=== PATIENT | female | born 1965 | race Hispanic/Latino ===

== ENCOUNTER 2021-05-19 01:52 | Emergency (ER) | payer MEDICARE ==
[2021-05-19] MEDS ORDERED: SODIUM CHLORIDE 0.9% 500 ML 500 ML IV ONE (02:18)
[2021-05-19] MEDS ORDERED: ONDANSETRON 4 MG ODT TAB PO/SL ONE (02:18)
[2021-05-19 02:31] LABS: Basophils # (Auto) 0.1 K/mm3 (0.0-0.1); Basophils % (Auto) 0.9 % (0.0-1.8); Eosinophils # (Auto) 0.3 K/mm3 (0.0-0.4); Eosinophils % (Auto) 3.6 % (0.0-4.3); Hematocrit 27.8 % (30.3-42.9); Hemoglobin 8.7 gm/dl (10.1-14.3); Lymphocytes % (Auto) 24.1 % (13.4-35.0); Mean Corpuscular HGB Conc 31 % (30-34); Mean Corpuscular Volume 88 fl (79-97); Monocytes # (Auto) 0.6 K/mm3 (0.0-0.8); Monocytes % (Auto) 7.8 % (0.0-7.3); Platelet Count 475 K/mm3 (140-440); Red Blood Count 3.17 M/mm3 (3.65-5.03); Red Cell Distribution Width 16.4 % (13.2-15.2)
[2021-05-19 02:48] LABS: Blood Urea Nitrogen 18 mg/dL (7-17); Hemolysis Index 9
[2021-05-19 02:49] LABS: BUN/Creatinine Ratio 36
[2021-05-19 02:52] LABS: Alanine Aminotransferase 11 units/L (7-56); Albumin 3.5 g/dL (3.9-5); Blood Urea Nitrogen 18 mg/dL (7-17); Calcium 9.1 mg/dL (8.4-10.2); Hemolysis Index 6
[2021-05-19 02:54] LABS: BUN/Creatinine Ratio 36
[2021-05-19] MEDS ORDERED: MORPHINE 4 MG/1 ML INJ IV ONE (03:11)
--- NOTE | 2021-05-19 04:25 | Cat Scan Report ---
CT ABDOMEN AND PELVIS WITH CONTRAST HISTORY: Abdominal / Rectal pain with nausea and vomiting COMPARISON: None TECHNIQUE: Routine abdominal and pelvic CT exam performed following intravenous contrast administrat ion.. All CT scans at this location are performed using CT dose reduction for ALARA by means of autom ated exposure control. FINDINGS: CT ABDOMEN: Lung Bases: No significant abnormality. Liver: No significant abnormality. Biliary: Small gallstones in the gallbladder. No evidence of acute cholecystitis. Spleen: No significant abnormality. Unenlarged. Pancreas: No significant abnormality. Adrenals: No significant abnormality. Kidneys: No significant abnormality. Lymphatics: No lymphadenopathy. Vasculature: No significant abnormality. Bowel/Peritoneum: Left upper quadrant ostomy noted. There is a questionable anal fissure along the ri ght side of the anus in the right gluteal fold. No additional acute findings. CT PELVIC: : Henry catheter in the bladder. Lymphatics: No lymphadenopathy. Osseous Structures: No aggressive appearing osseous lesions. Additional Findings: None IMPRESSION: 1. Questionable anal fissure along the right side of the anus in the right gluteal fold. 2. No additional acute findings. 3. Cholelithiasis without evidence of acute cholecystitis. Signer Name: Crow Martinez MD Signed: 05/19/2021 4:21 AM Workstation Name: [id number]
--- NOTE | 2021-05-19 05:30 | Emergency Department Report ---
ED General Adult HPI - General Chief complaint: Abdominal Pain Stated complaint: NAUSEA AND VOMITING Time Seen by Provider: 05/19/21 02:18 Source: patient, EMS Mode of arrival: Stretcher Limitations: Physical Limitation - History of Present Illness Initial comments: N/V abd pain, and rectal pain x 2 days. Pt from [facility]. Zofran given by EMS with no relief. Pt is aaox4, NAD noted. pt had recent surgery 3 weeks ago colostomy , and anal fissure no fever Severity scale (0 -10): 10 - Related Data Allergies Allergy/AdvReac Type Severity Reaction Status Date / Time codeine Allergy Itching Verified 05/19/21 02:02 diazepam [From Valium] Allergy Unknown Verified 05/19/21 02:02 Penicillins Allergy Hives Verified 05/19/21 02:02 sulfamethoxazole Allergy Unknown Verified 05/19/21 02:02 [From Bactrim] trimethoprim [From Bactrim] Allergy Unknown Verified 05/19/21 02:02 ED Review of Systems ROS: Stated complaint: NAUSEA AND VOMITING Other details as noted in HPI Constitutional: denies: chills, fever Eyes: denies: eye pain, eye discharge, vision change ENT: denies: ear pain, throat pain Respiratory: denies: cough, shortness of breath, wheezing Cardiovascular: denies: chest pain, palpitations Endocrine: no symptoms reported Gastrointestinal: denies: abdominal pain, nausea, diarrhea Genitourinary: denies: urgency, dysuria, discharge Musculoskeletal: denies: back pain, joint swelling, arthralgia Skin: denies: rash, lesions Neurological: denies: headache, weakness, paresthesias Psychiatric: denies: anxiety, depression Hematological/Lymphatic: denies: easy bleeding, easy bruising ED Past Medical Hx - Past Medical History Previous Medical History?: No Hx Hypertension: Yes Hx Diabetes: Yes ED Physical Exam - General Limitations: Physical Limitation General appearance: alert - Head Head exam: Present: atraumatic, normocephalic - Eye Eye exam: Present: normal appearance - ENT ENT exam: Present: mucous membranes moist - Neck Neck exam: Present: normal inspection - Respiratory Respiratory exam: Present: normal lung sounds bilaterally. Absent: respiratory distress - Cardiovascular Cardiovascular Exam: Present: regular rate, normal rhythm. Absent: systolic murmur, diastolic murmur, rubs, gallop - GI/Abdominal GI/Abdominal exam: Present: normal bowel sounds, other (colostomy bag ) - Rectal Rectal exam: Present: other (anal faissure recent debridement , no evidenc eof infection ) - Extremities Exam Extremities exam: Present: normal inspection - Back Exam Back exam: Present: normal inspection - Neurological Exam Neurological exam: Present: alert, oriented X3 - Psychiatric Psychiatric exam: Present: normal affect, normal mood - Skin Skin exam: Present: warm, dry, intact, normal color. Absent: rash ED Course Vital Signs 05/19/21 03:30 Respiratory 20 Rate ED Medical Decision Making - Lab Data Result diagrams: 05/19/21 02:17 05/19/21 02:21 - Radiology Data Radiology results: report reviewed, image reviewed - Medical Decision Making work up unremarkable e, pain and nausea controlled , spoke with dr West in [place] her surgeon , pt had anal fissure debridement and [facility] and has a colostmy . pt is vss no distress at this moment , US shwoed no cholecytitis Critical care attestation.: If time is entered above; I have spent that time in minutes in the direct care of this critically ill patient, excluding procedure time. ED Disposition Clinical Impression: Nausea and vomiting, Gall stones, Anal fissure, Colostomy in place Disposition: 01 HOME / SELF CARE / HOMELESS Is pt being admited?: No Does the pt Need Aspirin: No Condition: Stable Instructions: Abdominal Pain (ED), Nausea, Adult, Cholelithiasis, Anal Fistulotomy, Care After Referrals: WENDY CHRISTIAN MD [Primary Care Provider] - 3-5 Days
[2021-05-19] MEDS ORDERED: MORPHINE 2 MG/1 ML INJ IV ONE (06:00)
--- NOTE | 2021-05-19 06:08 | Ultrasound Report ---
LIMITED RUQ ABDOMINAL ULTRASOUND INDICATION: gall stones. COMPARISON: No relevant prior imaging study available. FINDINGS: Pancreas: Visualized portions show no significant abnormality. Abdominal Aorta: No significant abnormality. IVC: No significant abnormality. Liver: The liver measures 13.9 cm in length. Diffusely increased hepatic echogenicity which typically indicates hepatic steatosis.. Normal hepatopedal blood flow in the main portal vein. Gallbladder: No significant abnormality. Bile ducts: No significant abnormality. Common bile duct measures 3.3 mm. Right kidney: No significant abnormality visualized.. Free fluid: None. Additional Findings: None. IMPRESSION: 1. Sonographic findings suggesting hepatic steatosis. Signer Name: Crow Martinez MD Signed: 05/19/2021 6:04 AM Workstation Name: [id number]
[2021-05-19 12:39] VITALS: BP 120/84
== END 2021-05-19 12:37 | disposition home or self-care (01) ==
LOC: ED 01:52
DX: K80.80 Other cholelithiasis without obstruction (principal); K60.2 Anal fissure, unspecified; I10 Essential (primary) hypertension; E11.9 Type 2 diabetes mellitus without complications; Z88.0 Allergy status to penicillin; Z88.2 Allergy status to sulfonamides; Z88.8 Allergy status to other drugs, medicaments and biological substances; Z79.899 Other long term (current) drug therapy
CPT/HCPCS: 36415; 74177; 76705; 80048; 80053; 83690; 85025; 96374; 96376; 99284; J2270; J7040; Q9967; 99285; J3490; Q0162

== ENCOUNTER 2021-06-09 20:30 | Emergency (ER) | payer MEDICARE ==
[2021-06-09] MEDS ORDERED: HYDROmorphone 1 MG/1 ML INJ IV ONE (21:37)
[2021-06-09] MEDS ORDERED: ONDANSETRON 4 MG/2 ML INJ IV ONE (21:37)
[2021-06-09] MEDS ORDERED: SODIUM CHLORIDE 0.9% 1000 ML 1,000 ML IV ONE (21:37)
--- NOTE | 2021-06-09 21:37 | Emergency Department Report ---
ED Abdominal Pain HPI - General Chief Complaint: Urogenital-Female Stated Complaint: VAGINAL PAIN PUI?: No Time Seen by Provider: 06/09/21 21:33 Source: patient, EMS Mode of arrival: Stretcher Limitations: No Limitations - History of Present Illness Initial Comments: Patient is a 55-year-old female that presents emergency room via EMS for abdominal pain patient states it started 2 days ago. Patient states the pain is worsening. Patient states the pain is 10 out of 10. Patient states is in her bilateral lower quadrants. Patient also complains of dysuria. Patient has a indwelling catheter but she still having burning sensation. Patient is also complaining of vaginal pain. Patient denies vaginal discharge. Patient states is being treated for UTI but now with antibiotics with Pyridium. Patient brought in by EMS. EMS states the patient came from a local [facility]. Patient's vital signs stable with EMS. Patient denies recent travel. Patient denies recent international travel. Patient denies exposure to the novel coronavirus. Patient denies sick contacts. Patient denies fever and chills. Patient denies cough. Patient denies diarrhea. Patient denies coming in contact with anybody with symptoms of the novel coronavirus. Patient accompanied by a patient chart from [facility]. Patient has history of postpolio syndrome, diabetes, weakness, protein calorie malnutrition, morbid obesity, COPD, polyarthritis, bedsores, colostomy bag, indwelling catheter, sepsis, hypothyroidism, hyperlipidemia, depression, essential hypertension, fibromyalgia. MD Complaint: abdominal pain -: Sudden Location: LLQ, RLQ Radiation: none Migration to: no migration Severity: severe Severity scale (0 -10): 10 Quality: stabbing Consistency: constant Improves With: rest Worsens With: movement Context: other (Chronic indwelling Henry) Associated Symptoms: nausea, dysuria. denies: vomiting, diarrhea, fever, chills, constipation, hematemesis, hematochezia - Related Data Previous Rx's Medication Instructions Recorded Last Taken Type Ondansetron [Zofran Odt] 4 mg PO Q8HR #14 tab.rapdis 05/19/21 Unknown Rx levoFLOXacin [Levaquin TAB] 500 mg PO QDAY 10 Days #10 tablet 06/10/21 Unknown Rx Allergies Allergy/AdvReac Type Severity Reaction Status Date / Time codeine Allergy Itching Verified 05/19/21 02:02 diazepam [From Valium] Allergy Unknown Verified 05/19/21 02:02 Penicillins Allergy Hives Verified 05/19/21 02:02 sulfamethoxazole Allergy Unknown Verified 05/19/21 02:02 [From Bactrim] trimethoprim [From Bactrim] Allergy Unknown Verified 05/19/21 02:02 ED Review of Systems ROS: Stated complaint: VAGINAL PAIN Other details as noted in HPI Constitutional: denies: chills, fever Eyes: denies: eye pain, eye discharge, vision change ENT: denies: ear pain, throat pain Respiratory: denies: cough, shortness of breath, wheezing Cardiovascular: denies: chest pain, palpitations Endocrine: no symptoms reported Gastrointestinal: as per HPI, abdominal pain, nausea. denies: diarrhea Genitourinary: as per HPI, dysuria. denies: urgency, discharge Musculoskeletal: denies: back pain, joint swelling, arthralgia Skin: denies: rash, lesions Neurological: denies: headache, weakness, paresthesias Psychiatric: denies: anxiety, depression Hematological/Lymphatic: denies: easy bleeding, easy bruising ED Past Medical Hx - Past Medical History Previous Medical History?: Yes Hx Hypertension: Yes Hx Diabetes: Yes - Surgical History Past Surgical History?: Yes - Family History Family history: no significant - Social History Smoking Status: Never Smoker Substance Use Type: None - Medications Home Medications: Home Medications Medication Instructions Recorded Confirmed Last Taken Type Ondansetron [Zofran Odt] 4 mg PO Q8HR #14 tab.rapdis 05/19/21 Unknown Rx levoFLOXacin [Levaquin TAB] 500 mg PO QDAY 10 Days #10 tablet 06/10/21 Unknown Rx ED Physical Exam - General Limitations: No Limitations General appearance: alert, in no apparent distress - Head Head exam: Present: atraumatic, normocephalic - Eye Eye exam: Present: normal appearance - ENT ENT exam: Present: mucous membranes moist - Neck Neck exam: Present: normal inspection - Respiratory Respiratory exam: Present: normal lung sounds bilaterally. Absent: respiratory distress - Cardiovascular Cardiovascular Exam: Present: regular rate, normal rhythm. Absent: systolic murmur, diastolic murmur, rubs, gallop - GI/Abdominal GI/Abdominal exam: Present: soft, tenderness (Lower abdominal tenderness palpation), normal bowel sounds - Extremities Exam Extremities exam: Present: normal inspection - Back Exam Back exam: Present: normal inspection - Neurological Exam Neurological exam: Present: alert, oriented X3 - Psychiatric Psychiatric exam: Present: normal affect, normal mood - Skin Skin exam: Present: warm, dry, intact, normal color. Absent: rash ED Course Vital Signs 06/09/21 06/09/21 06/09/21 20:38 22:10 22:15 Temperature 98.3 F Pulse Rate 97 H Respiratory 18 18 14 Rate Blood Pressure 116/72 O2 Sat by Pulse 96 96 Oximetry 06/09/21 22:16 Temperature Pulse Rate 89 Respiratory 12 Rate Blood Pressure 124/80 O2 Sat by Pulse Oximetry - Reevaluation(s) Reevaluation #1: Patient states she is pain-free. Patient states she is feeling much better. Patient is ready go back to her [facility]. Patient states she does not want to stay in the hospital. I discussed all results and clinical findings with patient. I discussed plan of care with patient. Patient agrees with plan of care. Patient is stable for discharge. Patient will be discharged home. Patient given discharge instructions. Patient voiced understanding of discharge instructions. 06/10/21 00:20 ED Medical Decision Making - Lab Data Result diagrams: 06/09/21 21:48 06/09/21 21:48 - Radiology Data Radiology results: report reviewed CT ABDOMEN AND PELVIS WITH CONTRAST INDICATION / CLINICAL INFORMATION: Abdominal Pain. TECHNIQUE: Axial CT images were obtained through the abdomen and pelvis after 100 cc Omnipaque [address] scans at this location are performed using CT dose reduction for ALARA by means of automated exposure control. COMPARISON: CT abdomen and pelvis 05/19/2021 FINDINGS: Integrity of the abdominal contents is not included on the study. Additionally, there is moderate truncation artifact of the left peritoneal cavity. LOWER CHEST: No significant abnormality of the imaged chest. LIVER: No significant abnormality. Portal vein appears patent. GALLBLADDER: Cholelithiasis. No inflammatory changes. BILE DUCTS: No significant abnormality. SPLEEN: No significant abnormality. PANCREAS: No significant abnormality. ADRENALS: No significant abnormality. KIDNEYS/URETERS: Small 1 mm nonobstructing nephrolith posterior left lower kidney. Other small nephroliths are suggested within the left kidney. Right kidney unremarkable. STOMACH / DUODENUM / SMALL BOWEL: The stomach, duodenum, and small bowel demonstrate no significant abnormality. No specific abnormality of the mesentery demonstrated. COLON: No significant abnormality. APPENDIX: No significant abnormality. PERITONEUM: Double barrel ostomy suggested within left lower quadrant. Small am ount of parastomal fat herniation associated. A few colonic diverticula additionally are present. LYMPH NODES: No significant adenopathy. AORTA / ARTERIES: No significant abnormality. IVC / VEINS: No significant abnormality. URINARY BLADDER: No significant abnormality. Decompressed by Henry catheter. REPRODUCTIVE ORGANS: No significant abnormality. ADDITIONAL ABDOMINAL/PELVIC FINDINGS: Moderate atrophy of the abdominal rectus musculature and abdominal wall muscle tear. No distinct anal fissure. The entirety of the perineum are included. SKELETAL SYSTEM: Severe central stenosis at L3-4. Additionally severe multilevel facet arthropathy of the mid and lower lumbar spine. Moderately severe bilateral femoral acetabular joint degenerative change. IMPRESSION: 1. No acute process within the abdomen or pelvis. - Medical Decision Making Patient is a 55-year-old female who presents emergency room for abdominal pain, vaginal pain. Patient has an indwelling catheter and states she has had a recent UTI. Patient also complained of dysuria. Patient had labs done which were essentially unremarkable except for mild elevated WBC. Patient given pain meds, fluids and IV antibiotics. Patient states her pain improved. Patient had a CT scan of the abdomen to rule out a pyelonephritis. Patient CT scan of the abdomen was negative for acute findings. Patient does not require any further emergency medical service. Patient not require inpatient service. Patient is stable to be discharged back to her [facility]. I discussed all results and clinical findings with patient. I discussed plan of care with patient. Patient agrees with plan of care. Patient is stable for discharge. Patient will be discharged home. Patient given discharge instru ctions. Patient voiced understanding of discharge instructions. - Differential Diagnosis UTI, lower abdominal pain, indwelling catheter, Critical care attestation.: If time is entered above; I have spent that time in minutes in the direct care o f this critically ill patient, excluding procedure time. ED Disposition Clinical Impression: Vaginal pain Abdominal pain Qualifiers: Abdominal location: lower abdomen, unspecified Qualified Code(s): R10.30 - Lower abdominal pain, unspecified UTI (urinary tract infection) Qualifiers: Urinary tract infection type: catheter-associated UTI Indwelling urinary catheter type: indwelling urethral catheter Encounter type: initial encounter Qualified Code(s): T83.511A - Infection and inflammatory reaction due to indwelling urethral catheter, initial encounter; N39.0 - Urinary tract infection, site not specified Disposition: 03 [facility] FACILITY Is pt being admited?: No Does the pt Need Aspirin: No Condition: Stable Instructions: Abdominal Pain, Adult, [id number], Urinary Tract Infection, Adult, [id number] Additional Instructions: Patient to be discharged from ER return to her nursing facility. Patient to follow-up with primary care in 1-2 days. Patient to follow-up with [facility] in 2 to 3 days. Patient to rest. Patient to increase water. Patient to take Tylenol or ibuprofen as needed for pain. Patient to take meds as directed. Patient to return to the ER if condition worsens, changes or new symptoms arise. Prescriptions: levoFLOXacin [Levaquin TAB] 500 mg PO QDAY 10 Days #10 tablet Time of Disposition: 00:15
[2021-06-09 22:25] LABS: Alanine Aminotransferase 17 units/L (7-56); Albumin 3.8 g/dL (3.9-5); Blood Urea Nitrogen 15 mg/dL (7-17); Calcium 9.5 mg/dL (8.4-10.2); Hemolysis Index 2
[2021-06-09 22:29] LABS: Basophils # (Auto) 0.1 K/mm3 (0.0-0.1); Basophils % (Auto) 0.9 % (0.0-1.8); Eosinophils # (Auto) 0.1 K/mm3 (0.0-0.4); Hematocrit 34.8 % (30.3-42.9); Hemoglobin 11.1 gm/dl (10.1-14.3); Lymphocytes # (Auto) 2.5 K/mm3 (1.2-5.4); Mean Corpuscular HGB Conc 32 % (30-34); Mean Corpuscular Volume 85 fl (79-97); Monocytes # (Auto) 0.5 K/mm3 (0.0-0.8); Monocytes % (Auto) 7.7 % (0.0-7.3); Platelet Count 380 K/mm3 (140-440); Red Blood Count 4.11 M/mm3 (3.65-5.03); Red Cell Distribution Width 16.3 % (13.2-15.2)
[2021-06-09 22:30] LABS: BUN/Creatinine Ratio 50; Bilirubin,Direct < 0.2 mg/dL (0-0.2)
[2021-06-09 22:53] LABS: Bacteria,Urine 3+ /HPF (Negative); Bilirubin,Urine NEG (Negative); Blood,Urine NEG (Negative); Calcium Oxalate Crystals,Urine 1+; Color,Urine Amber (Yellow); Mucus,Urine FEW /HPF; Protein,Urine <15 mg/dL mg/dL (Negative)
[2021-06-09] MEDS ORDERED: diphenhydrAMINE 50 MG/ML VIAL IV ONE (22:55)
--- NOTE | 2021-06-10 00:11 | Cat Scan Report ---
CT ABDOMEN AND PELVIS WITH CONTRAST INDICATION / CLINICAL INFORMATION: Abdominal Pain. TECHNIQUE: Axial CT images were obtained through the abdomen and pelvis after 100 cc Omnipaque [address] scans at this location are performed using CT dose reduction for ALARA by means of automated exposure control. COMPARISON: CT abdomen and pelvis 05/19/2021 FINDINGS: Integrity of the abdominal contents is not included on the study. Additionally, there is moderate luis m ncation artifact of the left peritoneal cavity. LOWER CHEST: No significant abnormality of the imaged chest. LIVER: No significant abnormality. Portal vein appears patent. GALLBLADDER: Cholelithiasis. No inflammatory changes. BILE DUCTS: No significant abnormality. SPLEEN: No significant abnormality. PANCREAS: No significant abnormality. ADRENALS: No significant abnormality. KIDNEYS/URETERS: Small 1 mm nonobstructing nephrolith posterior left lower kidney. Other small nephro liths are suggested within the left kidney. Right kidney unremarkable. STOMACH / DUODENUM / SMALL BOWEL: The stomach, duodenum, and small bowel demonstrate no significant a bnormality. No specific abnormality of the mesentery demonstrated. COLON: No significant abnormality. APPENDIX: No significant abnormality. PERITONEUM: Double barrel ostomy suggested within left lower quadrant. Small amount of parastomal fat herniation associated. A few colonic diverticula additionally are present. LYMPH NODES: No significant adenopathy. AORTA / ARTERIES: No significant abnormality. IVC / VEINS: No significant abnormality. URINARY BLADDER: No significant abnormality. Decompressed by Henry catheter. REPRODUCTIVE ORGANS: No significant abnormality. ADDITIONAL ABDOMINAL/PELVIC FINDINGS: Moderate atrophy of the abdominal rectus musculature and abdomi nal wall muscle tear. No distinct anal fissure. The entirety of the perineum are included. SKELETAL SYSTEM: Severe central stenosis at L3-4. Additionally severe multilevel facet arthropathy of the mid and lower lumbar spine. Moderately severe bilateral femoral acetabular joint degenerative ch yue. IMPRESSION: 1. No acute process within the abdomen or pelvis. Signer Name: Vish Mcdonald II, MD Signed: 06/10/2021 12:07 AM Workstation Name: [id number]
[2021-06-10 03:57] VITALS: BP 121/67
== END 2021-06-09 23:00 ==
LOC: ED 20:30
DX: N39.0 Urinary tract infection, site not specified (principal); R10.30 Lower abdominal pain, unspecified; R10.2 Pelvic and perineal pain; I10 Essential (primary) hypertension; E11.9 Type 2 diabetes mellitus without complications
CPT/HCPCS: 36415; 74177; 80048; 80076; 81001; 85025; 87086; 96361; 96365; 96375; 99284; J1170; J1200; J1956; J2405; J7030; Q9967

== ENCOUNTER 2021-06-12 04:12 | Emergency (ER) | payer MEDICARE ==
[2021-06-12 06:02] LABS: Bilirubin,Urine NEG (Negative); Blood,Urine NEG (Negative); Calcium Oxalate Crystals,Urine 1+; Color,Urine Yellow (Yellow); Mucus,Urine FEW /HPF; Urobilinogen,Urine < 2.0 mg/dL (<2.0)
[2021-06-12] MEDS ORDERED: cefTRIAXone/NS 1 GM/50 ML 1 GM/50 ML BAG IV ONE (06:31)
[2021-06-12] MEDS ORDERED: FAMOTIDINE 20 MG/2 ML INJ IV ONE (06:31)
[2021-06-12] MEDS ORDERED: oxyCODONE /ACETAMINOPHEN 5-325MG TAB PO ONE (06:31)
[2021-06-12] MEDS ORDERED: diphenhydrAMINE 50 MG/ML VIAL IV ONE (06:32)
[2021-06-12] MEDS ORDERED: ONDANSETRON 4 MG/2 ML INJ IV ONE (06:33)
--- NOTE | 2021-06-12 06:48 | Emergency Department Report ---
ED Female HPI - General Chief complaint: Urogenital-Female Stated complaint: VAGINAL PAIN X 4 DAYS Time Seen by Provider: 06/12/21 06:05 Source: EMS Mode of arrival: Stretcher Limitations: Physical Limitation - History of Present Illness Initial comments: 55-year-old obese female the past medical history of postpolio syndrome, diabetes, weakness, protein calorie malnutrition, morbid obesity, COPD, polyarthritis, bedsores, colostomy bag, indwelling catheter, sepsis, hypothyroidism, hyperlipidemia, depression, essential hypertension, fibromyalgia. Presents to the hospital with several complaints. She complains of persistent and continue burning at her Henry catheter site. She was seen here On 06/09 and diagnosed with UTI and started on Levaquin. Urine cultures reviewed. Positive gram-negative rods with sensitivity and species identificati on pending. Patient also states she is having persistent rectal pressure feeling like she has to have a bowel movement which makes her nauseated. No vomiting reported. Patient was not transported with penitentiary paperwork - Related Data Previous Rx's Medication Instructions Recorded Last Taken Type Ondansetron [Zofran Odt] 4 mg PO Q8HR #14 tab.rapdis 05/19/21 Unknown Rx levoFLOXacin [Levaquin TAB] 500 mg PO QDAY 10 Days #10 tablet 06/10/21 Unknown Rx Cefuroxime Axetil [Cefuroxime] 500 mg PO BID #18 tab 06/12/21 Unknown Rx Famotidine [Pepcid] 20 mg PO BID #60 tablet 06/12/21 Unknown Rx oxyCODONE /ACETAMINOPHEN [Percocet 1 tab PO Q6HR PRN #14 tablet 06/12/21 Unknown Rx 5/325] Allergies Allergy/AdvReac Type Severity Reaction Status Date / Time codeine Allergy Itching Verified 05/19/21 02:02 diazepam [From Valium] Allergy Unknown Verified 05/19/21 02:02 Penicillins Allergy Hives Verified 05/19/21 02:02 sulfamethoxazole Allergy Unknown Verified 05/19/21 02:02 [From Bactrim] trimethoprim [From Bactrim] Allergy Unknown Verified 05/19/21 02:02 ED Review of Systems ROS: Stated complaint: VAGINAL PAIN X 4 DAYS Other details as noted in HPI ED Past Medical Hx - Past Medical History Previous Medical History?: Yes Hx Hypertension: Yes Hx Diabetes: Yes Additional medical history: Colostomy - Surgical History Past Surgical History?: No - Social History Smoking Status: Never Smoker Substance Use Type: None - Medications Home Medications: Home Medications Medication Instructions Recorded Confirmed Last Taken Type Ondansetron [Zofran Odt] 4 mg PO Q8HR #14 tab.rapdis 05/19/21 Unknown Rx levoFLOXacin [Levaquin TAB] 500 mg PO QDAY 10 Days #10 tablet 06/10/21 Unknown Rx Cefuroxime Axetil [Cefuroxime] 500 mg PO BID #18 tab 06/12/21 Unknown Rx Famotidine [Pepcid] 20 mg PO BID #60 tablet 06/12/21 Unknown Rx oxyCODONE /ACETAMINOPHEN [Percocet 1 tab PO Q6HR PRN #14 tablet 06/12/21 Unknown Rx 5/325] ED Physical Exam - General Limitations: Physical Limitation - Other Other exam information: General: No acute distress Head: Atraumatic Eyes: normal appearance ENT: Moist mucous membranes Neck: Normal appearance, no midline tenderness Chest: Clear to auscultation bilaterally CV: Regular rate and rhythm Abdomen: Soft, normal bowel sounds, nontender, obese, colostomy : No external vaginal abnormality, Henry catheter in place Back: Normal inspection Extremity: Normal inspection, full range of motion Neuro: Alert O x 3, no facial asymmetry, speech clear, no gross motor sensory deficit Psych: Appropriate behavior Skin: Sacral wound, pink, no dressing, no active infection noted ED Course Vital Signs 06/12/21 06/12/21 06/12/21 05:35 06:55 07:01 Temperature 98.2 F Pulse Rate 90 Respiratory 18 Rate Blood Pressure 122/86 142/65 O2 Sat by Pulse 96 97 99 Oximetry 06/12/21 06/12/21 06/12/21 07:15 07:31 07:45 Temperature Pulse Rate Respiratory Rate Blood Pressure 143/59 120/62 135/57 O2 Sat by Pulse 98 96 96 Oximetry 06/12/21 06/12/21 06/12/21 08:01 08:15 08:31 Temperature Pulse Rate Respiratory Rate Blood Pressure 111/79 111/79 111/79 O2 Sat by Pulse 96 96 94 Oximetry 06/12/21 12:15 Temperature Pulse Rate Respiratory Rate Blood Pressure O2 Sat by Pulse 95 Oximetry - Reevaluation(s) Reevaluation #1: 06/12/21 11:00 First urine sample was sent after collection from initial Henry catheter that has been new since April. A new Henry catheter was placed and a second urine sample sent which continues to show signs of infection. Wound dressing was placed by nurse 06/12/21 12:33 patient having multiple bowel movements after enema and reports relief of rectal pressure and vaginal pain. She received IV Rocephin for UTI without signs of allergic reaction. P.o. cefuroxime ordered in the ED to ensure no reaction prior to discharge on the medication 06/12/21 14:12 received [employer] [facility] paperwork at this time just prior to pt d/c - Consultations Consultation #1: 06/12/21 07:[address] Gonzalez surgeon on-call who was in the ED department. We evaluated last CT abdomen pelvis on record from June 07 and patient is noted to have a large amount of stool in her colon. This can be given her the rectal p ressure sensation she is feeling. He recommends a Fleet enema 06/12/21 12:34 Patient did receive case management consultation to address request for alternative penitentiary placement ED Medical Decision Making - Lab Data Result diagrams: 06/12/21 07:17 06/12/21 07:17 Lab Results 06/12/21 06/12/21 06/12/21 Range/Units 05:47 07:17 07:17 WBC 6.9 (4.5-11.0) K/mm3 RBC 3.93 (3.65-5.03) M/mm3 Hgb 11.2 (10.1-14.3) gm/dl Hct 32.3 (30.3-42.9) % MCV 82 (79-97) fl MCH 29 (28-32) pg MCHC 35 H (30-34) % RDW 16.4 H (13.2-15.2) % Plt Count 323 (140-440) K/mm3 Lymph % (Auto) 38.5 H (13.4-35.0) % Allen % (Auto) 7.4 H (0.0-7.3) % Eos % (Auto) 1.7 (0.0-4.3) % Baso % (Auto) 0.9 (0.0-1.8) % Lymph # (Auto) 2.6 (1.2-5.4) K/mm3 Allen # (Auto) 0.5 (0.0-0.8) K/mm3 Eos # (Auto) 0.1 (0.0-0.4) K/mm3 Baso # (Auto) 0.1 (0.0-0.1) K/mm3 Seg Neutrophils % 51.5 (40.0-70.0) % Seg Neutrophils # 3.5 (1.8-7.7) K/mm3 Sodium 139 (137-145) mmol/L Potassium 3.8 (3.6-5.0) mmol/L Chloride 100.6 (98-107) mmol/L Carbon Dioxide 25 (22-30) mmol/L Anion Gap 17 mmol/L BUN 12 (7-17) mg/dL Creatinine 0.3 L (0.6-1.2) mg/dL Estimated GFR > 60 ml/min BUN/Creatinine Ratio 40 % Glucose 159 H (65-100) mg/dL Calcium 9.5 (8.4-10.2) mg/dL Total Bilirubin 0.20 (0.1-1.2) mg/dL AST 13 (5-40) units/L ALT 15 (7-56) units/L Alkaline Phosphatase 112 (35-129) units/L Total Protein 6.7 (6.3-8.2) g/dL Albumin 3.9 (3.9-5) g/dL Albumin/Globulin Ratio 1.4 % Urine Color Yellow (Yellow) Urine Turbidity Clear (Clear) Urine pH 6.0 (5.0-7.0) Ur Specific [place] 1.018 (1.003-1.030) Urine Protein 100 mg/dl (Negative) mg/dL Urine Glucose (UA) Neg (Negative) mg/dL Urine Ketones Neg (Negative) mg/dL Urine Blood Neg (Negative) Urine Nitrite Pos (Negative) Ur Reducing Substances Urine Bilirubin Neg (Negative) Urine Ictotest Urine Urobilinogen < 2.0 (<2.0) mg/dL Ur Leukocyte Esterase Lg (Negative) Urine WBC (Auto) 14.0 H (0.0-6.0) /HPF Urine RBC (Auto) 11.0 (0.0-6.0) /HPF U Epithel Cells (Auto) 3.0 (0-13.0) /HPF Urine Bacteria (Auto) (Negative) /HPF Calcium Oxalate Crystal 1+ Urine Mucus Few /HPF Urine Yeast (Budding) /HPF 06/12/21 Range/Units 10:05 WBC (4.5-11.0) K/mm3 RBC (3.65-5.03) M/mm3 Hgb (10.1-14.3) gm/dl Hct (30.3-42.9) % MCV (79-97) fl MCH (28-32) pg MCHC (30-34) % RDW (13.2-15.2) % Plt Count (140-440) K/mm3 Lymph % (Auto) (13.4-35.0) % Allen % (Auto) (0.0-7.3) % Eos % (Auto) (0.0-4.3) % Baso % (Auto) (0.0-1.8) % Lymph # (Auto) (1.2-5.4) K/mm3 Allen # (Auto) (0.0-0.8) K/mm3 Eos # (Auto) (0.0-0.4) K/mm3 Baso # (Auto) (0.0-0.1) K/mm3 Seg Neutrophils % (40.0-70.0) % Seg Neutrophils # (1.8-7.7) K/mm3 Sodium (137-145) mmol/L Potassium (3.6-5.0) mmol/L Chloride (98-107) mmol/L Carbon Dioxide (22-30) mmol/L Anion Gap mmol/L BUN (7-17) mg/dL Creatinine (0.6-1.2) mg/dL Estimated GFR ml/min BUN/Creatinine Ratio % Glucose (65-100) mg/dL Calcium (8.4-10.2) mg/dL Total Bilirubin (0.1-1.2) mg/dL AST (5-40) units/L ALT (7-56) units/L Alkaline Phosphatase (35-129) units/L Total Protein (6.3-8.2) g/dL Albumin (3.9-5) g/dL Albumin/Globulin Ratio % Urine Color Yellow (Yellow) Urine Turbidity Slightly-cloudy (Clear) Urine pH 6.0 (5.0-7.0) Ur Specific [place] 1.014 (1.003-1.030) Urine Protein 30 mg/dl (Negative) mg/dL Urine Glucose (UA) Neg (Negative) mg/dL Urine Ketones Neg (Negative) mg/dL Urine Blood Neg (Negative) Urine Nitrite Neg (Negative) Ur Reducing Substances Not Reportable Urine Bilirubin Neg (Negative) Urine Ictotest Not Reportable Urine Urobilinogen < 2.0 (<2.0) mg/dL Ur Leukocyte Esterase Lg (Negative) Urine WBC (Auto) 67.0 H (0.0-6.0) /HPF Urine RBC (Auto) 18.0 (0.0-6.0) /HPF U Epithel Cells (Auto) 2.0 (0-13.0) /HPF Urine Bacteria (Auto) 1+ (Negative) /HPF Calcium Oxalate Crystal Urine Mucus Few /HPF Urine Yeast (Budding) 2+ /HPF - Medical Decision Making 55-year-old female presents to the hospital with complaints of persistent and worsening dysuria with Henry placement and rectal and vaginal discomfort. Recent CAT scan reviewed by myself and Dr. Gonzalez general surgeon with notable stool in the rectal vault. Patient received enema with output and improvement in sensation. Henry catheter was changed today. Urine still looks infected based on repeat UA with new Henry in place. Patient was placed on Levaquin several days ago without improvement. Patient received IV Rocephin without signs of allergic reaction. Plan to discharge on cephalosporin if there is not any sign of a reaction here in the ED. Urine culture did reveal gram-negative rods with sensitivity and bacteria identification pending. Patient also requesting pain medication for ongoing pain and GERD medication/Pepcid. I also discussed case with case management who provided some guidelines regarding steps to obtain new penitentiary/rehab facility placement Critical Care Time: No Critical care attestation.: If time is entered above; I have spent that time in minutes in the direct care of this critically ill patient, excluding procedure time. ED Disposition Clinical Impression: Fecal impaction in rectum, UTI (urinary tract infection), Colostomy in place, GERD (gastroesophageal reflux disease), Encounter for Henry catheter replacement Disposition: 01 HOME / SELF CARE / HOMELESS Is pt being admited?: No Does the pt Need Aspirin: No Condition: Stable Instructions: Urinary Tract Infection, Adult, [id number], Indwelling Urinary Catheter Care, Adult, [id number], Gastroesophageal Reflux Disease, Adult, [id number] Additional Instructions: Take the medication as prescribed. Follow-up with your doctor or doctor/clinic provided. Return if symptoms worsen as indicated by your discharge instructions. Prescriptions: Cefuroxime Axetil [Cefuroxime] 500 mg PO BID #18 tab Famotidine [Pepcid] 20 mg PO BID #60 tablet oxyCODONE /ACETAMINOPHEN [Percocet 5/325] 1 tab PO Q6HR PRN #14 tablet PRN Reason: Pain Referrals: PRIMARY CARE,MD [Primary Care Provider] - 3-5 Days your, surgeon [Other] - 3-5 Days
[2021-06-12] MEDS ORDERED: FLEET ENEMA PR ONE (07:13)
[2021-06-12 07:30] LABS: Basophils # (Auto) 0.1 K/mm3 (0.0-0.1); Basophils % (Auto) 0.9 % (0.0-1.8); Eosinophils # (Auto) 0.1 K/mm3 (0.0-0.4); Eosinophils % (Auto) 1.7 % (0.0-4.3); Hematocrit 32.3 % (30.3-42.9); Hemoglobin 11.2 gm/dl (10.1-14.3); Lymphocytes # (Auto) 2.6 K/mm3 (1.2-5.4); Lymphocytes % (Auto) 38.5 % (13.4-35.0); Mean Corpuscular HGB Conc 35 % (30-34); Mean Corpuscular Volume 82 fl (79-97); Monocytes # (Auto) 0.5 K/mm3 (0.0-0.8); Monocytes % (Auto) 7.4 % (0.0-7.3); Platelet Count 323 K/mm3 (140-440); Red Blood Count 3.93 M/mm3 (3.65-5.03); Red Cell Distribution Width 16.4 % (13.2-15.2)
[2021-06-12 07:54] LABS: Alanine Aminotransferase 15 units/L (7-56); Albumin 3.9 g/dL (3.9-5); Blood Urea Nitrogen 12 mg/dL (7-17); Calcium 9.5 mg/dL (8.4-10.2); Hemolysis Index 7
[2021-06-12 08:00] LABS: BUN/Creatinine Ratio 40
[2021-06-12 10:23] LABS: Bacteria,Urine 1+ /HPF (Negative); Mucus,Urine FEW /HPF
[2021-06-12 10:31] LABS: Bilirubin,Urine NEG (Negative); Blood,Urine NEG (Negative); Color,Urine Yellow (Yellow); Urobilinogen,Urine < 2.0 mg/dL (<2.0)
[2021-06-12 15:55] VITALS: BP 139/80
== END 2021-06-12 16:07 | disposition home or self-care (01) ==
LOC: ED 04:12
DX: T83.84XA Pain due to genitourinary prosthetic devices, implants and grafts, initial encounter (principal); K56.41 Fecal impaction; N39.0 Urinary tract infection, site not specified; K21.9 Gastro-esophageal reflux disease without esophagitis; I10 Essential (primary) hypertension; E11.9 Type 2 diabetes mellitus without complications; Z98.890 Other specified postprocedural states; Z79.899 Other long term (current) drug therapy; Z88.5 Allergy status to narcotic agent; Z88.2 Allergy status to sulfonamides; Z88.8 Allergy status to other drugs, medicaments and biological substances; Z88.0 Allergy status to penicillin; Y84.6 Urinary catheterization as the cause of abnormal reaction of the patient, or of later complication, without mention of misadventure at the time of the procedure; Y92.89 Other specified places as the place of occurrence of the external cause
CPT/HCPCS: 36415; 51702; 80053; 81001; 85025; 87086; 96365; 96375; 99284; J0696; J1200; J2405; J3490

== ENCOUNTER 2021-07-01 17:16 | Emergency (ER) | payer MEDICARE ==
--- NOTE | 2021-07-01 19:23 | Emergency Department Report ---
ED Female HPI - General Chief complaint: Urogenital-Female Stated complaint: VAGINAL PAIN Time Seen by Provider: 07/01/21 18:46 Source: patient, family Mode of arrival: Ambulatory Limitations: No Limitations - History of Present Illness Initial comments: 55 yo Morbidly Obese F with h/o Polio s/o chronic Greene catheter and colostomy with chronic decubitus ulcer who presented today with vagina discomfort with likely Greene catheter dysfunction. Patient denies any fever or chills. Patient is wheelchair-bound. She said Greene catheter has not been changed the last 30 days. Patient denies any abdominal pain or discomfort. She however reports some pressure urinating. She also mentioned leaking of the urine from the Greene catheter. No other modifying or associated factors reported. - Related Data Previous Rx's Medication Instructions Recorded Last Taken Type Ondansetron [Zofran Odt] 4 mg PO Q8HR #14 tab.rapdis 05/19/21 Unknown Rx levoFLOXacin [Levaquin TAB] 500 mg PO QDAY 10 Days #10 tablet 06/10/21 Unknown Rx Cefuroxime Axetil [Cefuroxime] 500 mg PO BID #18 tab 06/12/21 Unknown Rx Famotidine [Pepcid] 20 mg PO BID #60 tablet 06/12/21 Unknown Rx oxyCODONE /ACETAMINOPHEN [Percocet 1 tab PO Q6HR PRN #14 tablet 06/12/21 Unknown Rx 5/325] Ciprofloxacin HCl 500 mg PO BID 5 Days #10 cap NS 07/01/21 Unknown Rx Allergies Allergy/AdvReac Type Severity Reaction Status Date / Time codeine Allergy Itching Verified 05/19/21 02:02 diazepam [From Valium] Allergy Unknown Verified 05/19/21 02:02 Penicillins Allergy Hives Verified 05/19/21 02:02 sulfamethoxazole Allergy Unknown Verified 05/19/21 02:02 [From Bactrim] trimethoprim [From Bactrim] Allergy Unknown Verified 05/19/21 02:02 ED Review of Systems ROS: Stated complaint: VAGINAL PAIN Other details as noted in HPI Comment: All other systems reviewed and negative Genitourinary: dysuria, other (Dysfunction catheter) ED Past Medical Hx - Past Medical History Previous Medical History?: Yes Hx Hypertension: Yes Hx Diabetes: Yes Additional medical history: Colostomy - Surgical History Past Surgical History?: No - Social History Smoking Status: Never Smoker Substance Use Type: None - Medications Home Medications: Home Medications Medication Instructions Recorded Confirmed Last Taken Type Ondansetron [Zofran Odt] 4 mg PO Q8HR #14 tab.rapdis 05/19/21 Unknown Rx levoFLOXacin [Levaquin TAB] 500 mg PO QDAY 10 Days #10 tablet 06/10/21 Unknown Rx Cefuroxime Axetil [Cefuroxime] 500 mg PO BID #18 tab 06/12/21 Unknown Rx Famotidine [Pepcid] 20 mg PO BID #60 tablet 06/12/21 Unknown Rx oxyCODONE /ACETAMINOPHEN [Percocet 1 tab PO Q6HR PRN #14 tablet 06/12/21 Unknown Rx 5/325] Ciprofloxacin HCl 500 mg PO BID 5 Days #10 cap NS 07/01/21 Unknown Rx ED Physical Exam - General Limitations: No Limitations General appearance: alert, in no apparent distress - Head Head exam: Present: normal inspection - ENT ENT exam: Present: normal exam, normal orophraynx, mucous membranes moist - Neck Neck exam: Present: normal inspection, full ROM. Absent: tenderness - Respiratory Respiratory exam: Present: normal lung sounds bilaterally. Absent: respiratory distress, accessory muscle use - Cardiovascular Cardiovascular Exam: Present: regular rate, normal rhythm, normal heart sounds - GI/Abdominal GI/Abdominal exam: Present: soft, normal bowel sounds, other (Colostomy bag). Absent: distended, tenderness - External exam: Present: other (Greene catheter in place with noted leakage of urine) - Extremities Exam Extremities exam: Present: other (Noted with right thigh bigger than the left from polio) - Back Exam Back exam: Present: other (Decubital ulcer dressed). Absent: tenderness - Neurological Exam Neurological exam: Present: alert, oriented X3 - Psychiatric Psychiatric exam: Present: normal affect, normal mood (Band-Aid decubital ulcer ) ED Course Vital Signs 07/01/21 07/01/21 17:23 19:19 Temperature 98.6 F Pulse Rate 96 H Respiratory 16 Rate Blood Pressure 121/66 [Left] O2 Sat by Pulse 96 99 Oximetry - Reevaluation(s) Reevaluation #1: 07/01/21 19:27 Morbidly Obese with history of Polio -- with chronic greene catheter and Colostomy bag --here with vaginal discomfort with urine leakage-- differential includes but not limited to Greene Catheter dysfunction, UTI or vaginitis -- will go ahead and check UA and change the greene catheter and treat accordingly. 07/01/21 19:29 Pt previous visit reviewed on 06/12 where she present with same symptoms and was treated for UTI and have her greene catheter changed. She was also given enema at that time. Reevaluation #2: 07/01/21 22:08 Urinalysis done with a clean urine from the new Greene catheter noted with large urine leukocytes with negative nitrates with this patient's symptoms--we will go ahead and give 500 mg of Keflex p.o. and DC home to 7 more days of antibiotics for the likely urinary tract infection. Critical care attestation.: If time is entered above; I have spent that time in minutes in the direct care of this critically ill patient, excluding procedure time. ED Disposition Clinical Impression: Vaginal pain Dislodged Greene catheter Qualifiers: Encounter type: initial encounter Qualified Code(s): T83.021A - Displacement of indwelling urethral catheter, initial encounter Urinary tract infection Qualifiers: Urinary tract infection type: catheter-associated UTI Indwelling urinary catheter type: indwelling urethral catheter Encounter type: initial encounter Qualified Code(s): T83.511A - Infection and inflammatory reaction due to indwelling urethral catheter, initial encounter; N39.0 - Urinary tract infection, site not specified Disposition: 01 HOME / SELF CARE / HOMELESS Is pt being admited?: No Does the pt Need Aspirin: No Condition: Stable Instructions: Urinary Tract Infection, Adult, [id number], Antibiotic Me dicine, Adult, [id number] Additional Instructions: It is very important that you take and complete your new antibiotics Keflex as prescribed for the next 7 days to help your symptoms Increase your daily fluid to help your urine output Call and follow-up with your primary doctor in the next 3 to 5 days for progress Please do not hesitate to call or return to emergency room if your symptoms worsen Prescriptions: Ciprofloxacin HCl 500 mg PO BID 5 Days #10 cap NS Referrals: BARNEY MULLEN MD [Referring] - 3-5 Days Time of Disposition: 22:13
[2021-07-01 20:04] LABS: Bacteria,Urine 2+ /HPF (Negative); Bilirubin,Urine NEG (Negative); Blood,Urine MOD (Negative); Calcium Oxalate Crystals,Urine 1+; Color,Urine Yellow (Yellow); Mucus,Urine 3+ /HPF; Urobilinogen,Urine < 2.0 mg/dL (<2.0)
[2021-07-01 20:09] LABS: RBC,Urine > 182.0 /HPF (0.0-6.0); WBC,Urine > 182.0 /HPF (0.0-6.0)
[2021-07-01 21:26] LABS: Bacteria,Urine 1+ /HPF (Negative); Bilirubin,Urine NEG (Negative); Blood,Urine MOD (Negative); Color,Urine Yellow (Yellow); Mucus,Urine 2+ /HPF; Urobilinogen,Urine < 2.0 mg/dL (<2.0)
[2021-07-02 03:06] VITALS: BP 132/66
== END 2021-07-02 01:47 | disposition home or self-care (01) ==
LOC: ED 17:16
DX: T83.028A Displacement of other urinary catheter, initial encounter (principal); R10.2 Pelvic and perineal pain; N39.0 Urinary tract infection, site not specified; I10 Essential (primary) hypertension; E11.9 Type 2 diabetes mellitus without complications; Z88.2 Allergy status to sulfonamides; Z88.8 Allergy status to other drugs, medicaments and biological substances; Y84.9 Medical procedure, unspecified as the cause of abnormal reaction of the patient, or of later complication, without mention of misadventure at the time of the procedure; Y92.89 Other specified places as the place of occurrence of the external cause
CPT/HCPCS: 51702; 81001; 87086; 99283; 99284

== ENCOUNTER 2021-08-05 19:35 | Emergency (ER) | payer MEDICARE ==
[2021-08-05] MEDS ORDERED: SODIUM CHLORIDE 0.9% 1000 ML 1,000 ML IV ONE (19:58)
--- NOTE | 2021-08-05 20:01 | Emergency Department Report ---
ED Female HPI - General Chief complaint: Urogenital-Female Stated complaint: VAGINA PAIN Time Seen by Provider: 08/05/21 19:52 Source: patient, old records reviewed Mode of arrival: Stretcher Limitations: No Limitations, Physical Limitation - History of Present Illness Initial comments: 55-year-old obese female the past medical history of postpolio syndrome, diabetes, weakness, protein calorie malnutrition, morbid obesity, COPD, polyarthritis, bedsores, colostomy bag, indwelling catheter, sepsis, hypothyroidism, hyperlipidemia, depression, essential hypertension, and fibromyalgia presents from the [facility] with complaint of vaginal pain and Henry catheter leaking urine. Patient expresses that she is upset about the treatment she has received at the [facility]. Her catheter has been leaking urine and she has versus concerns about wound irritation. Patient also complains of persistent and ongoing vaginal pain. Patient also complains of moderate suprapubic tenderness worse with palpation. No reports of vomiting or fever patient has been here in the past for similar complaints requiring Henry catheter exchange and antibiotics for UTI. - Related Data Previous Rx's Medication Instructions Recorded Last Taken Type Ondansetron [Zofran Odt] 4 mg PO Q8HR #14 tab.rapdis 05/19/21 Unknown Rx levoFLOXacin [Levaquin TAB] 500 mg PO QDAY 10 Days #10 tablet 06/10/21 Unknown Rx Famotidine [Pepcid] 20 mg PO BID #60 tablet 06/12/21 Unknown Rx oxyCODONE /ACETAMINOPHEN [Percocet 1 tab PO Q6HR PRN #14 tablet 06/12/21 Unknown Rx 5/325] Ciprofloxacin HCl 500 mg PO BID 5 Days #10 cap NS 07/01/21 Unknown Rx Cefuroxime Axetil [Cefuroxime] 500 mg PO BID #18 tab 08/05/21 Unknown Rx Allergies Allergy/AdvReac Type Severity Reaction Status Date / Time codeine Allergy Itching Verified 05/19/21 02:02 diazepam [From Valium] Allergy Unknown Verified 05/19/21 02:02 Penicillins Allergy Hives Verified 05/19/21 02:02 sulfamethoxazole Allergy Unknown Verified 05/19/21 02:02 [From Bactrim] trimethoprim [From Bactrim] Allergy Unknown Verified 05/19/21 02:02 ED Review of Systems ROS: Stated complaint: VAGINA PAIN Other details as noted in HPI Comment: All other systems reviewed and negative ED Past Medical Hx - Past Medical History Previous Medical History?: Yes Hx Hypertension: Yes Hx Diabetes: Yes Additional medical history: Colostomy. Henry Cath - Surgical History Past Surgical History?: No - Social History Smoking Status: Never Smoker Substance Use Type: None - Medications Home Medications: Home Medications Medication Instructions Recorded Confirmed Last Taken Type Ondansetron [Zofran Odt] 4 mg PO Q8HR #14 tab.rapdis 05/19/21 Unknown Rx levoFLOXacin [Levaquin TAB] 500 mg PO QDAY 10 Days #10 tablet 06/10/21 Unknown Rx Famotidine [Pepcid] 20 mg PO BID #60 tablet 06/12/21 Unknown Rx oxyCODONE /ACETAMINOPHEN [Percocet 1 tab PO Q6HR PRN #14 tablet 06/12/21 Unknown Rx 5/325] Ciprofloxacin HCl 500 mg PO BID 5 Days #10 cap NS 07/01/21 Unknown Rx Cefuroxime Axetil [Cefuroxime] 500 mg PO BID #18 tab 08/05/21 Unknown Rx ED Physical Exam - General Limitations: No Limitations, Physical Limitation - Other Other exam information: General: No acute distress Head: Atraumatic Eyes: normal appearance ENT: Moist mucous membranes Neck: Normal appearance, no midline tenderness Chest: Clear to auscultation bilaterally CV: Regular rate and rhythm Abdomen: Soft, normal bowel sounds, suprapubic tenderness no rebound or guarding. Colostomy bag : External vaginal without acute abnormality. Henry catheter was actually outside of the urethra without any urine in the bag. Patient urinated on the bed after arrival Extremity: Normal inspection, full range of motion Neuro: Alert O x 3, no facial asymmetry, speech clear, no gross motor sensory deficit Psych: Appropriate behavior ED Course Vital Signs 08/05/21 08/05/21 08/05/21 19:37 19:55 20:01 Temperature 98 F Pulse Rate 112 H 117 H Respiratory 18 12 Rate Blood Pressure 136/83 144/76 O2 Sat by Pulse 99 96 96 Oximetry 08/05/21 08/05/21 08/05/21 20:15 20:23 20:31 Temperature Pulse Rate 103 H 99 H Respiratory 14 22 18 Rate Blood Pressure 137/80 115/56 O2 Sat by Pulse 96 91 Oximetry ED Medical Decision Making - Lab Data Result diagrams: 08/05/21 20:19 08/05/21 20:19 Lab Results 08/05/21 08/05/21 08/05/21 Range/Units 20:13 20:19 20:19 WBC 10.8 (4.5-11.0) K/mm3 RBC 4.57 (3.65-5.03) M/mm3 Hgb 11.9 (10.1-14.3) gm/dl Hct 35.8 (30.3-42.9) % MCV 78 L (79-97) fl MCH 26 L (28-32) pg MCHC 33 (30-34) % RDW 15.9 H (13.2-15.2) % Plt Count 360 (140-440) K/mm3 Lymph % (Auto) 18.3 (13.4-35.0) % Glenn % (Auto) 5.3 (0.0-7.3) % Eos % (Auto) 1.1 (0.0-4.3) % Baso % (Auto) 0.6 (0.0-1.8) % Lymph # (Auto) 2.0 (1.2-5.4) K/mm3 Glenn # (Auto) 0.6 (0.0-0.8) K/mm3 Eos # (Auto) 0.1 (0.0-0.4) K/mm3 Baso # (Auto) 0.1 (0.0-0.1) K/mm3 Seg Neutrophils % 74.7 H (40.0-70.0) % Seg Neutrophils # 8.1 H (1.8-7.7) K/mm3 Sodium 135 L (137-145) mmol/L Potassium 4.4 (3.6-5.0) mmol/L Chloride 98.7 (98-107) mmol/L Carbon Dioxide 26 (22-30) mmol/L Anion Gap 15 mmol/L BUN 13 (7-17) mg/dL Creatinine 0.4 L (0.6-1.2) mg/dL Estimated GFR > 60 ml/min BUN/Creatinine Ratio 33 % Glucose 237 H (65-100) mg/dL Calcium 9.2 (8.4-10.2) mg/dL Total Bilirubin < 0.20 (0.1-1.2) mg/dL AST 14 (5-40) units/L ALT 13 (7-56) units/L Alkaline Phosphatase 114 (35-129) units/L Total Protein 7.0 (6.3-8.2) g/dL Albumin 3.5 L (3.9-5) g/dL Albumin/Globulin Ratio 1.0 % Urine Color Straw (Yellow) Urine Turbidity Clear (Clear) Urine pH 8.0 H (5.0-7.0) Ur Specific [place] 1.008 (1.003-1.030) Urine Protein <15 mg/dl (Negative) mg/dL Urine Glucose (UA) Neg (Negative) mg/dL Urine Ketones Neg (Negative) mg/dL Urine Blood Neg (Negative) Urine Nitrite Pos (Negative) Urine Bilirubin Neg (Negative) Urine Urobilinogen < 2.0 (<2.0) mg/dL Ur Leukocyte Esterase Lg (Negative) Urine WBC (Auto) 95.0 H (0.0-6.0) /HPF Urine RBC (Auto) 11.0 (0.0-6.0) /HPF U Epithel Cells (Auto) 1.0 (0-13.0) /HPF Urine Bacteria (Auto) 1+ (Negative) /HPF Urine Yeast (Budding) 2+ /HPF - Medical Decision Making 55-year-old female presents to the hospital with dislodged Henry catheter and suprapubic pain. A new catheter was placed in the ED. Urine shows UTI. No signs of leukocytosis, sepsis or septic shock. Patient received a dose of Rocephin, IV fluids, and pain medication. Will discharge back to [facility] with antibiotics. Urine culture pending Critical Care Time: No Critical care attestation.: If time is entered above; I have spent that time in minutes in the direct care of this critically ill patient, excluding procedure time. ED Disposition Clinical Impression: Dislodged Henry catheter, UTI (urinary tract infection) Disposition: 01 HOME / SELF CARE / HOMELESS Is pt being admited?: No Does the pt Need Aspirin: No Condition: Stable Instructions: Urinary Tract Infection, Adult, Indwelling Urinary Catheter Care, Adult, [id number] Additional Instructions: Take the medication as prescribed. Follow-up with your doctor or doctor/clinic provided. Return if symptoms worsen as indicated by your discharge instructions. Prescriptions: Cefuroxime Axetil [Cefuroxime] 500 mg PO BID #18 tab Referrals: WENDY CHRISTIAN MD [Primary Care Provider] - 3-5 Days
[2021-08-05] MEDS ORDERED: ONDANSETRON 4 MG/2 ML INJ IV ONE (20:06)
[2021-08-05] MEDS ORDERED: MORPHINE 4 MG/1 ML INJ IV ONE (20:06)
[2021-08-05 20:36] LABS: Bilirubin,Urine NEG (Negative); Blood,Urine NEG (Negative); Color,Urine Straw (Yellow); Protein,Urine <15 mg/dL mg/dL (Negative); Urobilinogen,Urine < 2.0 mg/dL (<2.0)
[2021-08-05 20:39] LABS: Bacteria,Urine 1+ /HPF (Negative)
[2021-08-05 20:40] LABS: Basophils # (Auto) 0.1 K/mm3 (0.0-0.1); Basophils % (Auto) 0.6 % (0.0-1.8); Eosinophils # (Auto) 0.1 K/mm3 (0.0-0.4); Eosinophils % (Auto) 1.1 % (0.0-4.3); Hematocrit 35.8 % (30.3-42.9); Hemoglobin 11.9 gm/dl (10.1-14.3); Lymphocytes % (Auto) 18.3 % (13.4-35.0); Mean Corpuscular HGB Conc 33 % (30-34); Mean Corpuscular Volume 78 fl (79-97); Monocytes # (Auto) 0.6 K/mm3 (0.0-0.8); Monocytes % (Auto) 5.3 % (0.0-7.3); Platelet Count 360 K/mm3 (140-440); Red Blood Count 4.57 M/mm3 (3.65-5.03); Red Cell Distribution Width 15.9 % (13.2-15.2)
[2021-08-05 21:01] LABS: Alanine Aminotransferase 13 units/L (7-56); Albumin 3.5 g/dL (3.9-5); Blood Urea Nitrogen 13 mg/dL (7-17); Calcium 9.2 mg/dL (8.4-10.2); Hemolysis Index 5
[2021-08-05 21:08] LABS: BUN/Creatinine Ratio 33
[2021-08-05] MEDS ORDERED: cefTRIAXone/NS 1 GM/50 ML 1 GM/50 ML BAG IV ONE (21:51)
[2021-08-05 22:22] VITALS: BP 117/51
== END 2021-08-06 05:38 | disposition home or self-care (01) ==
LOC: ED 19:35
DX: N39.0 Urinary tract infection, site not specified (principal); Z46.6 Encounter for fitting and adjustment of urinary device; I10 Essential (primary) hypertension; E11.9 Type 2 diabetes mellitus without complications; Z88.1 Allergy status to other antibiotic agents; Z88.6 Allergy status to analgesic agent; Z88.0 Allergy status to penicillin; Z79.899 Other long term (current) drug therapy
CPT/HCPCS: 36415; 51702; 80053; 81001; 85025; 87076; 87086; 87186; 96361; 96365; 96375; 99284; J0696; J2270; J2405; J7030